=== PATIENT | male | born 1970 | race Caucasian/White ===

== ENCOUNTER 2017-03-29 14:54 | Emergency (ER) | payer OTHER ==
[2017-03-29 15:00] VITALS: BP 169/98; PULSE 86; RESP 18; TEMP 98.6
[2017-03-29] MEDS ORDERED: PROPARACAINE 0.5% OPHTH DROPS 15 ML BTL LEFT EYE STA (15:08)
[2017-03-29] MEDS ORDERED: TOBRAMYCIN 0.3% OPHTH OINT 3.5 GM TUBE BOTH EYES STA (15:08)
[2017-03-29] MEDS ORDERED: PROPARACAINE 0.5% OPHTH DROPS 15 ML BTL RIGHT EYE STA (15:08)
--- NOTE | 2017-03-29 15:19 | ED ---
Eye Problem HPI - General Chief complaint: Eye Problems Stated complaint: Eye Injury Time Seen by Provider: 03/29/17 15:04 Source: patient, RN notes reviewed Mode of arrival: ambulatory Limitations: no limitations - History of Present Illness Initial comments: 46-year-old male presents emergency Department with chief complaint of bilateral eye pain. 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 Patient states they are red and feels irritated. 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 Patient states his tetanus is up-to-date. Denies any trauma. Patient states she has had some tearing of his eyes. - Related Data Previous Rx's Medication Instructions Recorded Ibuprofen [Motrin] 600 mg PO Q8HR PRN #30 tab 03/29/17 Allergies Allergy/AdvReac Type Severity Reaction Status Date / Time Penicillins Allergy Unknown Verified 03/29/17 15:00 Childhood Review of Systems ROS Statement: Those systems with pertinent positive or pertinent negative responses have been documented in the HPI. ROS Other: All systems not noted in ROS Statement are negative. Past Medical History Past Medical History: No Reported History Additional Past Medical History / Comment(s): chronic back pain History of Any Multi-Drug Resistant Organisms: None Reported Past Surgical History: No Surgical Hx Reported Past Psychological History: No Psychological Hx Reported Smoking Status: Current every day smoker Past Alcohol Use History: None Reported Past Drug Use History: None Reported General Exam Limitations: no limitations General appearance: alert, in no apparent distress Head exam: Present: atraumatic, normocephalic, normal inspection Eye exam: Present: PERRL, EOMI, conjunctival injection. Absent: normal appearance, scleral icterus, periorbital swelling, periorbital tenderness ENT exam: Present: normal exam, normal oropharynx, mucous membranes moist, TM's normal bilaterally, normal external ear exam Neck exam: Present: normal inspection, full ROM. Absent: tenderness, meningismus, lymphadenopathy Respiratory exam: Present: normal lung sounds bilaterally. Absent: respiratory distress, wheezes, rales, rhonchi, stridor Cardiovascular Exam: Present: regular rate, normal rhythm, normal heart sounds. Absent: systolic murmur, diastolic murmur, rubs, gallop, clicks Neurological exam: Present: alert, oriented X3, CN II-XII intact Course Vital Signs 03/29/17 14:56 Temperature 98.6 F Pulse Rate 86 Respiratory 18 Rate Blood Pressure 169/98 O2 Sat by Pulse 98 Oximetry Medical Decision Making - Medical Decision Making 46-year-old male present emergency department for eye irritation. Patient has shop welder's flash. Patient had complete relief of his symptoms after proparacaine there is no corneal abrasions. Patient will be given Tobrex eye ointment for comfort and anti-inflammatories. Return parameters were discussed. Disposition Clinical Impression: Photokeratitis of both eyes Disposition: HOME SELF-CARE Condition: Stable Instructions: Corneal Flash Koehler (ED) Additional Instructions: Please return to the Emergency Department if symptoms worsen or any other concerns. Prescriptions: Ibuprofen [Motrin] 600 mg PO Q8HR PRN #30 tab PRN Reason: Pain Time of Disposition: 15:19
== END 2017-03-29 15:30 | disposition home or self-care (01) ==
LOC: EC 14:54
DX: H16.133 Photokeratitis, bilateral (principal); T75.09XA Other effects of lightning, initial encounter; F17.200 Nicotine dependence, unspecified, uncomplicated; Z88.0 Allergy status to penicillin; Y93.89 Activity, other specified
CPT/HCPCS: 99283